=== PATIENT | male | born 1980 | race Caucasian/White ===

== ENCOUNTER → 2018-08-10 | Outpatient (CLI) | payer MEDICARE, MEDICAID ==
[~2018-08-10] MED LIST: ALLEGRA ALLERG180 MG PO; LAMICTAL XR200 MG PO; LORAZEPAM 1 MG T1 MG PO; NEXIUM40 MG PO; RECLAST 55 MG/100 M IV; REGLAN 10 MG TA10 MG PO; REMERON 30 MG T30 M1 PO; RISPERDAL2 MG PO; TOPAMAX200 MG PO; ZONEGRAN100 MG PO; ZONEGRAN50 MG PO; ZYPREXA20 MG PO
== END ==
LOC: M.RAD 15:35 → EDSTATUS 16:36
DX: S32.010A Wedge compression fracture of first lumbar vertebra, initial encounter for closed fracture (principal); M40.00 Postural kyphosis, site unspecified; K21.9 Gastro-esophageal reflux disease without esophagitis; X58.XXXA Exposure to other specified factors, initial encounter; Y93.89 Activity, other specified; Y92.89 Other specified places as the place of occurrence of the external cause; Y99.8 Other external cause status

== ENCOUNTER → 2018-08-13 | Outpatient (CLI) | payer MEDICARE, MEDICAID | LOC: M.RAD 14:43 | DX: J06.9 Acute upper respiratory infection, unspecified (principal); S32.010A Wedge compression fracture of first lumbar vertebra, initial encounter for closed fracture; R56.9 Unspecified convulsions; X58.XXXA Exposure to other specified factors, initial encounter; Y93.89 Activity, other specified; Y92.89 Other specified places as the place of occurrence of the external cause; Y99.8 Other external cause status ==

== ENCOUNTER → 2020-02-29 | Outpatient (CLI) | payer MEDICARE, MEDICAID | LOC: M.RAD 16:57 | PROVIDERS: ATTEND Internal Medicine | DX: S13.140A Subluxation of C3/C4 cervical vertebrae, initial encounter (principal); M47.812 Spondylosis without myelopathy or radiculopathy, cervical region; M48.02 Spinal stenosis, cervical region; R56.9 Unspecified convulsions; K21.9 Gastro-esophageal reflux disease without esophagitis; H61.23 Impacted cerumen, bilateral; X58.XXXA Exposure to other specified factors, initial encounter; Y93.89 Activity, other specified; Y92.89 Other specified places as the place of occurrence of the external cause; Y99.8 Other external cause status ==

== ENCOUNTER → 2020-03-01 | Outpatient (CLI) | payer MEDICARE, MEDICAID | LOC: M.RAD 16:21 | PROVIDERS: ATTEND Internal Medicine | DX: S32.010A Wedge compression fracture of first lumbar vertebra, initial encounter for closed fracture (principal); R56.9 Unspecified convulsions; H61.23 Impacted cerumen, bilateral; M40.03 Postural kyphosis, cervicothoracic region; K21.9 Gastro-esophageal reflux disease without esophagitis; X58.XXXA Exposure to other specified factors, initial encounter; Y93.89 Activity, other specified; Y92.89 Other specified places as the place of occurrence of the external cause; Y99.8 Other external cause status ==

== ENCOUNTER → 2020-03-09 | Outpatient (CLI) | payer MEDICARE, MEDICAID | LOC: M.CT 14:00 | PROVIDERS: ATTEND Internal Medicine | DX: S32.010A Wedge compression fracture of first lumbar vertebra, initial encounter for closed fracture (principal); X58.XXXA Exposure to other specified factors, initial encounter; Y93.89 Activity, other specified; Y92.89 Other specified places as the place of occurrence of the external cause; Y99.8 Other external cause status ==

== ENCOUNTER → 2021-01-15 | Outpatient (CLI) | payer MEDICARE, MEDICAID | LOC: M.CT 12-31 16:00 → M.RAD 12-31 16:30 → M.CT 01-03 16:00 → M.RAD 01-03 16:30 → M.CT 01-07 16:00 → M.RAD 01-07 16:30 → M.CT 15:11 | PROVIDERS: ATTEND Internal Medicine | DX: S32.010A Wedge compression fracture of first lumbar vertebra, initial encounter for closed fracture (principal); S22.080D Wedge compression fracture of T11-T12 vertebra, subsequent encounter for fracture with routine healing; R63.4 Abnormal weight loss; R26.2 Difficulty in walking, not elsewhere classified; E87.6 Hypokalemia; X58.XXXA Exposure to other specified factors, initial encounter; X58.XXXD Exposure to other specified factors, subsequent encounter; Y92.89 Other specified places as the place of occurrence of the external cause; Y93.89 Activity, other specified; Y99.8 Other external cause status; M25.78 Osteophyte, vertebrae; M47.812 Spondylosis without myelopathy or radiculopathy, cervical region ==